=== PATIENT | female | born 1985 | race Caucasian/White ===

== ENCOUNTER 2021-01-14 14:18 | Emergency (ER) | payer OTHER, SELFPAY ==
[2021-01-14 14:28] VITALS: BP 103/64; PULSE 95; RESP 16; TEMP 36.7; O2SAT 99
--- NOTE | 2021-01-14 14:29 | ED.GENADULT ---
HPI - General Adult General Chief complaint: Unspecified Stated complaint: swelling facial Time Seen by Provider: 01/14/21 14:40 Source: patient and RN notes reviewed Mode of arrival: ambulatory Limitations: no limitations History of Present Illness HPI narrative: Haley is a 35-year-old female patient who arrived ambulatory to the [facility]. Harika states that last night the left side of her face started swelling and became painful. Patient states she woke this morning and the swelling was increased. Patient has used warm wet rags and a heating pad to decrease the swelling. Patient states she lost a cap off of her left first molar and has a dentist appointment scheduled next January 23 for replacement. Patient denies any other symptoms. MD complaint: left facial swelling Related Data Allergies Allergy/AdvReac Type Severity Reaction Status Date / Time adhesive tape Allergy Mild Rash Verified 03/21/19 13:48 Review of Systems Review of Systems: CONSTITUTIONAL: Denies body aches, fever, chills, or sweats. EYES: Denies visual changes, redness, or discharge. ENT: Denies rhinorrhea, congestion, sore throat, or otalgia; left facial pain CARDIOVASCULAR: Denies chest pain, palpitations, or edema. RESPIRATORY: Denies cough or dyspnea. GASTROINTESTINAL: Denies abdominal pain, nausea, vomiting, or diarrhea. GENITOURINARY: Denies dysuria or hematuria. SKIN: Denies rash, itching, or wounds. MUSCULOSKELETAL: Denies back pain, joint pain, or myalgia. NEUROLOGIC: Denies headache, numbness, tingling, or weakness. PSYCH: Denies depression or anxiety. All systems reviewed & are unremarkable except as noted in HPI and below PMFSH Social History Social History Smoking packs per day: 1 Smoking cigarettes per day: 20.0 Smoking status: Current every day smoker Gender identity (if verbalized by the patient): Female Comments At time of signature, I have reviewed and agree with nursing past medical, surgical, social and family history unless otherwise noted. Please see nursing chart for further information. There is no relevant family history pertinent to the presenting complaint Exam Narrative: GENERAL: Well-appearing, well-nourished, and in no acute distress. HEAD: Normocephalic, atraumatic. EYES: EOMI. No redness or drainage. Conjunctivae normal. ENT: Mucous membranes pink and moist. Nares clear. No rhinorrhea. left 1st molar with cap removed, Gingiva erythematous, caries noted to left 1st molar NECK: Normal AROM. Supple. No lymphadenopathy. MUSCULOSKELETAL: No bony tenderness. EXTREMITIES: Normal range of motion. No edema. SKIN: Warm, dry, no rash. Capillary refill normal. Normal skin turgor. minimal edema to left maxillary area, no erythema, no warmth; NEURO: No focal deficits. Alert and oriented x3. Gait steady. PSYCH: Normal affect. No signs of depression or anxiety. Course Vital Signs Vital signs: Vital Signs Temperature 36.7 C 01/14/21 14:28 Pulse Rate 95 01/14/21 14:28 Respiratory Rate 16 01/14/21 14:28 Blood Pressure 103/64 01/14/21 14:28 Pulse Oximetry 99 01/14/21 14:28 Temperature 36.7 C 01/14/21 14:28 Pulse Rate 95 01/14/21 14:28 Respiratory Rate 16 01/14/21 14:28 Blood Pressure 103/64 01/14/21 14:28 Pulse Oximetry 99 01/14/21 14:28 Reviewed Medical Decision Making Differential Diagnosis Differential Diagnosis: Allergies, viral illness, sinusitis, dental abscess Medical Records Medical records reviewed: Yes I reviewed the external patient's medical records. Vital Signs Vital Signs: Vital Signs Temperature 36.7 C 01/14/21 14:28 Pulse Rate 95 01/14/21 14:28 Respiratory Rate 16 01/14/21 14:28 Blood Pressure 103/64 01/14/21 14:28 Pulse Oximetry 99 01/14/21 14:28 Temperature 36.7 C 01/14/21 14:28 Pulse Rate 95 01/14/21 14:28 Respiratory Rate 16 01/14/21 14:28 Blood
== END 2021-01-14 14:48 | disposition home or self-care (01) ==
PROVIDERS: Emergency Provider Nurse Practitioner Family
DX: K04.7 Periapical abscess without sinus (principal); F17.210 Nicotine dependence, cigarettes, uncomplicated
CPT/HCPCS: 99213; G0463

== ENCOUNTER 2023-08-02 08:14 | Emergency (ER) | payer OTHER, SELFPAY ==
[2023-08-02 08:32] VITALS: BP 117/81; PULSE 101; RESP 16; TEMP 37.3; O2SAT 100
--- NOTE | 2023-08-02 08:33 | ED.URI ---
HPI - URI/Sore Throat General Chief Complaint: Upper Respiratory Infection Stated Complaint: cough,chest congestion,SOB,asthmatic Time Seen by Provider: 08/02/23 08:33 Source: patient Mode of arrival: ambulatory Limitations: no limitations History of Present Illness HPI Narrative: 37-year-old female presents with complaint of cough, nasal congestion, postnasal drainage for the past 2 weeks. Patient reports coughing up yellow mucus. Coughed all night and was unable to sleep. Patient states she is on strong antihistamine regimen from her ENT specialist for seasonal allergies. Takes Zyrtec 3 times a day. Out of albuterol inhaler since yesterday, needs refill. Short of breath with exertion at times but otherwise denies wheezing , no chest tightness. All systems reviewed and negative except as noted above. Related Data Home Medications Medication Instructions Recorded Confirmed azelastine 0.05 % eye drops 1 drp EACH EYE DAILY 08/02/23 08/02/23 budesonide-formoterol HFA 160 1 puff inhalation DAILY 08/02/23 08/02/23 mcg-4.5 mcg/actuation aerosol inhaler (Symbicort) cetirizine 10 mg tablet 10 mg PO DAILY 08/02/23 08/02/23 Allergies Allergy/AdvReac Type Severity Reaction Status Date / Time adhesive tape Allergy Mild Rash Verified 08/02/23 08:33 Review of Systems Review of Systems: CONSTITUTIONAL: Denies fever, chills, or sweats. reports fatigue. EYES: Denies visual changes, redness, or discharge. ENT: reports rhinorrhea, congestion, sinus pressure. Denies sore throat, or otalgia. CARDIOVASCULAR: Denies chest pain, palpitations, or edema. RESPIRATORY: Reports cough and dyspnea with exertion. GASTROINTESTINAL: Denies abdominal pain, nausea, vomiting, or diarrhea. GENITOURINARY: Denies dysuria or hematuria. SKIN: Denies rash or itching. MUSCULOSKELETAL: Denies back pain, joint pain, or myalgia. NEUROLOGIC: Denies headache, numbness, or weakness. PSYCHIATRIC: Denies anxiety or depression. All other systems reviewed are negative, except as documented in HPI. [facility] Social History Social History Smoking packs per day: 1 Smoking cigarettes per day: 20.0 Smoking status: Current every day smoker Gender identity (if verbalized by the patient): Female Comments At time of signature, agree with nursing past medical, surgical, social and family history. There is no relevant family history pertinent to the presenting complaint. Exam Narrative: GENERAL: This is a well-nourished, well-developed patient, in no apparent distress. HEAD: normocephalic, atraumatic. EYES: PERRL. Sclera clear/white. Vision is grossly intact. EARS: External ears normal, auditory canals clear and without drainage, TMs normal without perforation. Hearing grossly intact. NOSE: External nose normal with Clear nasal drainage, erythema to bilateral nares. THROAT: Mucous membranes moist, Mild erythema postnasal drainage. NECK: Neck supple, non-tender without lymphadenopathy, masses or thyromegaly. CARDIOVASCULAR: Regular rate and rhythm without murmurs, gallops, or rubs. RESPIRATORY: Mild expiratory wheezing to lower lung brian, otherwise clear. Breath sounds equal bilaterally. No rales, or rhonchi. SKIN: warm, Dry, intact with no suspicious lesions or rash, good texture and turgor. NEURO: awake, alert, and oriented to person, place and time. There were no obvious focal neurologic abnormalities. EXTREMITIES: No joint tenderness, effusion, or edema noted. Course Course Level of Care: Express Care Visit Vital Signs Vital signs: Reviewed MDM - URI/Sore Throat MDM Narrative Medical decision making narrative: patient well-appearing. Nontoxic. No respiratory distress. Oxygen saturation 100% room air. Will refill albuterol inhaler. Will prescribe antibiotic today due to duration of symptoms And patient's comorbidities. Patient is aware of diagnosis, understands
[2023-08-02 08:35] VITALS: BP 117/81; PULSE 101; RESP 16; TEMP 37.3; O2SAT 100
== END 2023-08-02 08:46 | disposition home or self-care (01) ==
PROVIDERS: Emergency Provider Nurse Practitioner Family
DX: J01.90 Acute sinusitis, unspecified (principal); B96.89 Other specified bacterial agents as the cause of diseases classified elsewhere; F17.210 Nicotine dependence, cigarettes, uncomplicated; J45.901 Unspecified asthma with (acute) exacerbation
CPT/HCPCS: 99213; G0463

== ENCOUNTER 2024-03-09 11:16 | Outpatient (CLI) | payer OTHER, SELFPAY ==
--- NOTE | ~2024-03-09 | MMUS_ITS ---
EXAMINATION: MM diagnostic deven BI w kylee, US breast LT limited HISTORY: Palpable left breast mass TECHNIQUE: Additional 3-D tomosynthesis images of the breasts were performed and synthetic 2-D images were generated. CAD analysis was submitted and interpreted. High resolution Limited left breast ultr asound was performed. COMPARISON: None BREAST PARENCHYMAL COMPOSITION: Dense: The breasts are extremely dense, which lowers the sensitivity of mammography. FINDINGS: MAMMOGRAPHIC FINDINGS: There are no suspicious masses, calcifications or architectural distortion in either breast to sugges t malignancy. ULTRASOUND: Limited left breast ultrasound: At 12:00, 2 cm from the nipple there is an oval hypoechoic mass measuring 11 x 9 x 7 mm without inter nal vascularity or posterior features. At 12:00, 1 cm from the nipple there is a 3 mm cyst. IMPRESSION: 1. Solid-appearing oval hypoechoic 11 mm left breast mass at 12:00, 2 cm from the nipple. 2. Ultrasound-guided left breast biopsy recommended. BI-RADS category 4, suspicious findings. Reviewed, dictated and finalized at location B. [employer] IMPRESSION: 1. Solid-appearing oval hypoechoic 11 mm left breast mass at 12:00, 2 cm from t he nipple. 2. Ultrasound-guided left breast biopsy recommended. BI-RADS category 4, suspicious findings.
== END 2024-03-09 11:17 | disposition home or self-care (01) ==
LOC: ANHIMG 11:18
PROVIDERS: Visit Provider Obstetrics & Gynecology
DX: N63.21 Unspecified lump in the left breast, upper outer quadrant (principal)
CPT/HCPCS: 76642; 77062; 77066; G0279